=== PATIENT | female | born 1950 | race Caucasian/White ===

== ENCOUNTER 2023-10-18 10:35 | Day surgery (SDC) | payer OTHER ==
[2023-10-14 15:32] LABS: Absolute Basophils 0.1 K/uL (0-0.5); Absolute Eosinophils 0.1 K/uL (0-0.5); Absolute Lymphocytes (CBC) 1.7 K/uL (0.7-4.9); Absolute Monocytes 0.6 K/uL (0.1-1.3); Absolute Neutrophil 4.8 K/uL (1.8-8.0); Basophils % 1.2 % (0-1.3); Eosinophils % 1.6 % (0-4.4); Hematocrit 41.5 % (36.0-45.0); Hemoglobin 13.4 g/dL (12.0-15.0); Lymphocytes % 23.1 % (15.3-44.8); MCH 27.7 pg (27.0-35.0); MCHC 32.3 g/dL (32.0-36.0); MCV 85.9 fL (80-100); MPV 7.5 fL (7.6-11.3); Monocytes % 8.4 % (3.3-12.3); Neutrophils % 65.7 % (41.7-73.7); Platelets 375 thou/uL (152-406); RBC Red Blood Cell Count 4.83 M/uL (3.86-4.86); Red Cell Distribution Width 14.4 % (12.1-15.2)
[2023-10-14 15:49] LABS: Anion Gap 9.1 mEq/L (5.0-15.0); Potassium 4.1 mEq/L (3.5-5.1)
--- NOTE | 2023-10-16 11:45 | EKG ---
Test Date: 2023-10-14 Test Time: 15:11:47 [employer] Police Officer: SOCRATES MEASUREMENT RESULTS: Intervals: Rate: 74 WV: 136 QRSD: 72 QT: 374 QTc: 415 [place]: P: 83 WV: 136 QRS: 78 T: 96 INTERPRETIVE STATEMENTS: Normal sinus rhythm Normal ECG No previous ECG available for comparison Electronically Signed On 10-16-23 11:44:02 CDT by Perez Reyes
[2023-10-18] MEDS: Ringers Lactate 1,000 ML IV ONE (11:00)
[2023-10-18] MEDS ORDERED: MIDAZOLAM HCL 2 MG/2 ML INJ ONE (11:40)
[2023-10-18] MEDS ORDERED: propofoL 200 MG/20 ML VIAL IV ONE (11:40)
[2023-10-18] MEDS ORDERED: ONDANSETRON 4 MG/2 ML VIAL ONE (11:40)
[2023-10-18] MEDS ORDERED: LIDOCAINE 2% MPF 5 ML VIAL ONE (11:40)
[2023-10-18] MEDS ORDERED: FENTANYL CITR 100 MCG/2 ML ONE (11:40)
[2023-10-18] MEDS ORDERED: ROCURONIUM 50 MG/5 ML VIAL IV ONE (11:40)
[2023-10-18] MEDS: CEFAZOLIN SODIUM 1 GM/VIAL ONE (11:55)
[2023-10-18] MEDS: LIDOCAINE HCL/EPINEPHRINE 20 ML MDV ONE (12:30)
[2023-10-18] MEDS ORDERED: GLYCOPYRROLATE 0.2 MG/ML SYR ONE (13:15)
[2023-10-18] MEDS ORDERED: NEOSTIGMINE 1 MG/ML -10 ML VIAL ONE (13:15)
--- NOTE | 2023-10-18 13:45 | P.OP ---
Preoperative diagnosis: LEFT Hip / Abdominal Wall Hernia Postoperative diagnosis: LEFT Hip / Abdominal Wall Hernia Primary procedure: Laparoscopic LEFT Hip / Abdominal Wall Hernia Anesthesia: GETA + Local Estimated blood loss: <5cc Specimen: None Findings: ~ 3cm LEFT hip hernia Complications: None Implants: Bard Ventralite ST 11.4cm round, Sorbafix, Protack Transferred to: Recovery Room Condition: Good
[2023-10-18] MEDS: HYDROMORPHONE HCL 1 MG/ML INJ ONE (14:18)
[2023-10-18] MEDS: HYDROCODONE/APAP 5/325 MG TAB ONE (14:57)
[2023-10-18 15:37] VITALS: BP 117/64; TEMP 98.4; O2SAT 94
--- NOTE | 2023-10-19 02:16 | OP ---
Date of Procedure: 10/18/2023 Surgeon: Primo Davidson MD, Preoperative Diagnosis: Left hip/abdominal wall hernia. Postoperative Diagnosis: Left hip/abdominal wall hernia. Procedure: Laparoscopic left hip/abdominal wall hernia . Anesthesia: General endotracheal plus local 1% lidocaine with epinephrine. Estimated Blood Loss: Less than 5 cc. Specimen: None. Findings: Approximately 3 cm left hip hernia, previously created by a left hip biopsy. Complications: None. Implants: Bard Ventralight ST mesh with Echo Positioning System, 11.4 cm round mesh utilized. Sorba fix absorbable fixation tacks x45 and ProTack x5 tacks used in the abdominal compartment. Disposition: The patient was transferred to the recovery room in good condition. Procedure In Detail: After informed consent was obtained, the patient was brought to the operating r oom, prepped and draped in the usual sterile fashion. After adequate anesthesia was achieved, anesth etized in the area in the infraumbilical skin down through the subcutaneous tissues. 5 [address] tr ocar was then introduced in the abdomen without evidence of complication. Insufflation was obtained to 15 mmHg at this time. There was no injury to vital structures upon entry in the abdomen. Additio nal trocar was placed in the left lower quadrant. This was similarly anesthetized and sharply incise d, and a 5 mm trocar was placed under direct visualization without evidence of complication. Additio nal supraumbilical trocars were placed under direct visualization without evidence of complication. This was a 5 mm trocar placed without issue. The umbilical trocar was then upsized to a 12 mm under direct visualization without evidence of complication. I then reduced bowel contents from the left h ip area, where an obvious hernia defect was evident. Using the LigaSure device without issue or comp lication. I then swept back all preperitoneal tissue away from the hernia defect and brought the End ostitch with an 0 V-Loc suture, closing the hernia defect in a running fashion, imbricating the herni a sac with good apposition of the tissues. After this was completed, I sized the defect. Approximat jose armando, 11.[address] mesh with Echo Positioning was sized, deployed into the abdomen appr opriately and centrally positioned around the hernia defect, to allow for at least 4 to 5 cm of under lay. I made a stab incision and deployed the mesh at this point with the balloon deployment system. I then secured a single crown using Sorbafix absorbable fixation tacks to the anterior abdominal wal l. I then removed the balloon deployment system without evidence of complication. I deployed a tota l of 45 tacks to the anterolateral abdominal wall. I used ProTack metal titanium tacks to secure it to the inner aspect of the hip bone at this point, for approximately 5 tacks to secure the mesh to th e anterior abdominal wall. At this point, the mesh was in good apposition to the abdominal wall with out evidence of complication. There were no hemostatic maneuvers required. I then rolled the patien t away and closed the 12 mm trocar site using a Obey-[place] suture passer with 0 Vicryl in interr upted fashion with good approximation of tissues. The abdomen was then desufflated under direct visi on without evidence of complication. All trocars were visualized, and the abdomen was desufflated un anais direct visualization without evidence of complication. At this point, all skin incisions were th en copiously irrigated and closed with a 4-0 Monocryl in a running fashion. Dermabond was placed ove r top. The patient tolerated the procedure well without evidence of complication and transferred to PACU in good condition. All counts were correct at the end of the case. CODY/MELANY Voice ID: [id number] Report ID: [id number]
== END 2023-10-18 15:26 | disposition home or self-care (01) ==
LOC: OR 10:35
PROVIDERS: ATTEND Surgery
PROC: 0WUF4JZ Supplement Abdominal Wall with Synthetic Substitute, Percutaneous Endoscopic Approach (ICD-10-PCS; principal; 2023-10-18 12:00)
DX: K43.2 Incisional hernia without obstruction or gangrene (principal); I10 Essential (primary) hypertension; F41.9 Anxiety disorder, unspecified; F32.A Depression, unspecified
CPT/HCPCS: 93005; 85025; 80048; 36415; 49593; J2704; J2710; J2001; J2250; J3010; J1170; J2405; J7120; J0690; C1781